=== PATIENT | female | born 1960 | race Caucasian/White ===

== ENCOUNTER 2017-01-25 10:37 | Day surgery (SDC) | payer MEDICAID ==
[~2017-01-25] VITALS: Ht 162.6 cm; Wt 73.2 kg
[2017-01-25 11:32] LABS: HEMATOCRIT 47.2 % (36.0-48.0); HEMOGLOBIN 15.7 g/dL (12-16); MCH 29.9 pg (26.0-34.0); MCHC 33.3 g/dL (31.0-37.0); MCV 89.9 fL (80.0-100.0); MEAN PLATELET VOLUME 12.5 fL (7.4-10.4); RBC 5.25 10x6/uL (4.00-5.40); RDW 14.6 % (11.5-14.5); WBC 7.3 10x3/uL (4.8-10.8)
[2017-01-25 11:51] LABS: APTT 30.2 SECONDS (22.8-39.4); INR 0.96 (0.85-1.17); PROTIME 12.7 SECONDS (11.6-15.0)
[2017-01-25] MEDS ORDERED: VITAMIN B-1000 MCG/M IM (11:52)
[2017-01-25] MEDS ORDERED: ULTRAM50 MG (11:52)
[2017-01-25] MEDS ORDERED: OMEPRAZOLE40 MG PO (11:53)
[2017-01-25] MEDS ORDERED: CYCLOBENZAPRINE10 MG PO (11:53)
[2017-01-25] MEDS ORDERED: GEODON40 MG PO (11:53)
[2017-01-25] MEDS ORDERED: GEODON80 MG PO (11:54)
[2017-01-25] MEDS ORDERED: NEURONTIN 300300 MG PO (11:54)
[2017-01-25] MEDS ORDERED: FLUTICASONE PRO16 GM NASAL (11:55)
[2017-01-25] MEDS ORDERED: ALEVE220 MG PO (11:55)
[2017-01-25] MEDS ORDERED: COMBIVENT RESPIM4 GM INH (11:55)
[2017-01-25] MEDS ORDERED: TRAZODONE HCL150 MG PO (11:56)
[2017-01-25] MEDS ORDERED: MOBIC7.5 MG PO (11:56)
[2017-01-25 11:57] LABS: ANION GAP 10.7 mmol/L (8-16); BILIRUBIN - TOTAL 0.4 mg/dL (0.2-1.3); CALCIUM 8.8 mg/dL (8.5-10.1); CARBON DIOXIDE 29.9 mmol/L (21.0-32.0); CREATININE - SERUM 1.1 mg/dL (0.6-1.3); POTASSIUM - SERUM 3.6 mmol/L (3.5-5.1); PROTEIN - SERUM 6.9 g/dL (6.4-8.2)
[2017-01-25] MEDS ORDERED: HYDROCHLOROTH12.5 M1 PO (11:57)
[2017-01-25 12:04] VITALS: BP 122/72; Ht 162.6 cm; Wt 73.2 kg
[2017-01-25 12:31] LABS: HCG SERUM NEGATIVE (NEGATIVE)
--- NOTE | 2017-01-25 15:09 | NUR ---
1500--IV DC'D, PT UP TO DRESS. JIL JANE 1510--DISCHARGE INSTRUCTIONS GIVEN, PT VERBALIZES UNDERSTANING. JIL JANE
--- NOTE | 2017-01-30 13:01 | OP ---
PATIENT NAME: STARR DALTON MEDICAL RECORD: [id number] :62 LOCATION:D.OPS ADMISSION DATE: SURGEON: JANA BECERRA DO DATE OF OPERATION: 01/25/2017 PROCEDURE: EGD with biopsies. SCOPE: Olympus video gastroscope. MEDICATIONS: Propofol 110 mg IV per anesthesia. INDICATIONS: Nausea, heartburn, right-sided abdominal pain. FINDINGS: Informed consent was given. The patient was made comfortable with the above medication. After reaching an adequate level of sedation by slow IV push, the patient was placed on her left side. The endoscope was then advanced under direct visualization through the mouth to the second portion of the duodenum. The upper, middle, and distal third of the esophagus appeared normal. There was some mild LA class A reflux-induced esophagitis at the GE junction. The endoscope was advanced through the GE junction and retroflexed to view the cardia, where a small sliding hiatal hernia was present. The endoscope was then advanced down through the body and antral regions. The entire stomach appeared normal without evidence of gastritis, erosions or ulcerations. Random biopsies were taken from the antrum, incisura and body of the stomach to rule out H. pylori and to send for histology. Scope was then advanced into the bulb and second portion of the duodenum, which appeared normal. The scope was withdrawn from the patient. The patient tolerated the procedure well and there were no complications. ESTIMATED BLOOD LOSS: Less than 3 cc. IMPRESSION: 1. Reflux esophagitis grade A. 2. Small sliding hiatal hernia involving the cardia. 3. There was a single gastric diverticulum noted in the fundus of the stomach. PLAN AND RECOMMENDATIONS: 1. Discharge home when recovery parameters are met. 2. Continue current diet. 3. Continue current medications. The patient states that her current symptoms are very well controlled with omeprazole and she has no problem continuing this medication for her symptoms as she does experience severe symptoms when she misses a dose. I have instructed her to notify our clinic if her symptoms worsen or she losses response to medication. TRANSINT:[id number] Voice Confirmation ID: [id number] DOCUMENT ID: [id number] OPERATIVE REPORT [id number] STARR DALTON JANA BECERRA DO at 1301 CC: [id number] DICTATION DATE: 01/25/17 1357 DATA TECHNICIAN: 01/25/17 1549 [facility] 01/25/17 [id number] [place] [address]
== END 2017-01-25 15:10 | disposition home or self-care (01) ==
LOC: D.OPS 10:37
PROVIDERS: Anesthesiology
DX: K21.0 Gastro-esophageal reflux disease with esophagitis (principal); R11.0 Nausea; K44.9 Diaphragmatic hernia without obstruction or gangrene; F17.200 Nicotine dependence, unspecified, uncomplicated; J44.9 Chronic obstructive pulmonary disease, unspecified

== ENCOUNTER → 2017-02-21 17:17 | Outpatient (CLI) | payer MEDICAID ==
[2017-01-25 12:04] VITALS: BMI 27.7
[~2017-02-21 17:17] MED LIST: ALEVE220 MG PO; COMBIVENT RESPIM4 GM INH; CYCLOBENZAPRINE10 MG PO; FLUTICASONE PRO16 GM NASAL; GEODON40 MG PO; GEODON80 MG PO; HYDROCHLOROTH12.5 M1 PO; MOBIC7.5 MG PO; NEURONTIN 300300 MG PO; OMEPRAZOLE40 MG PO; TRAZODONE HCL150 MG PO; ULTRAM50 MG; VITAMIN B-1000 MCG/M IM
== END | disposition home or self-care (01) ==
LOC: D.MAMMO 01-19 15:45
DX: Z12.31 Encounter for screening mammogram for malignant neoplasm of breast (principal)